=== PATIENT | female | born 1965 | race Caucasian/White ===

== ENCOUNTER 2017-12-13 02:56 | Inpatient (IN) | END 2017-12-20 13:35 | disposition home or self-care (01) | DRG 844 ==

== ENCOUNTER 2018-12-27 10:23 | Emergency (ER) | payer BC, MEDICAID ==
[~2018-12-27] VITALS: Wt 49.2 kg
[~2018-12-27 10:23] MED LIST: CEPH500C PO; HYDR-4012 PO; MUPI15CR9 TOP; NAPR-688 PO
--- NOTE | 2018-12-27 13:20 | ERD ---
ER Documentation Chief Complaint Chief Complaint multiple complains HPI The patient is a 53-year-old female, presenting to the ER with multiple complaints. She complains of midsternal vomiting and diarrhea for the last 2 days, denies hematemesis/hematochezia, complains of vague abdominal discomfort with vomiting. She has dyspnea for the last month intermittently associated with generalized weakness. She was diagnosed with right renal cell carcinoma and had right nephrectomy did not have any chemotherapy. She recently had ch olecystectomy on November 18, 2018. She denies fever, cough, dysuria. 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 Medications Home Meds Active Scripts Ondansetron (Ondansetron Odt) 4 Mg Tab.rapdis, 4 MG PO Q6H PRN for NAUSEA AND/OR VOMITING, #10 TAB Prov:TERESE GOODMAN MD 12/27/18 Nitrofurantoin Monohyd Macrocr* (Macrobid*) 100 Mg Capsr, 100 MG PO BID for 14 Days, CAP Prov:TERESE GOODMAN MD 12/27/18 Mupirocin Calcium* (Mupirocin*) 2% - 15 Gram Cream..g., 1 APPLIC TOP BID for 7 Days Prov:EVELINE MILLER 12/20/17 Cephalexin* (Cephalexin*) 500 Mg Capsule, 500 MG PO Q8 for 7 Days, CAP Prov:EVELINE MILLER 12/20/17 Reported Medications Hydrocodone/Acetaminophen (Buchanan 7.5-325 Tablet) 1 Each Tablet, 1 EACH PO Q6H PRN for NEEDED, TAB 12/12/17 Naproxen* (Naproxen*) 500 Mg Tablet, 500 MG PO BID PRN for NEEDED, TAB 12/12/17 Allergies Allergies: Coded Allergies: No Known Drug Allergies (Verified Allergy, Unknown, 12/13/17) PMhx/Soc History of Surgery: Yes (R kidney removal, brain surgery ) Anesthesia Reaction: No Hx Neurological Disorder: Yes (ruptured aneurysm, cva) Hx Respiratory Disorders: No Hx Cardiac Disorders: No Hx Psychiatric Problems: No Hx Miscellaneous Medical Probl: No Hx Alcohol Use: No Hx Substance Use: No Hx Tobacco Use: No Physical Exam Vitals Vital Signs Date Temp Pulse Resp B/P (MAP) Pulse Ox O2 O2 Flow FiO2 Time Delivery Rate 12/27/18 98.3 99 18 102/50 100 10:32 (67) Physical Exam Const: No acute distress. Head: Atraumatic. Eyes: Normal Conjunctiva. ENT: Normal External Ears, Nose and Mouth. Neck: Full range of motion. No meningismus. Resp: Clear to auscultation bilaterally. Cardio: Regular rate and rhythm. Abd: Soft, non distended, normal bowel sounds, non tender. Skin: No petechiae or rashes. Back: No midline or flank tenderness. Ext: No cyanosis, or edema. Neur: Awake and alert. No focal deficit Psych: Normal Mood and Affect. Result Diagram: 12/27/18 1323 12/27/18 1323 Results 24 hrs Laboratory Tests Test 12/27/18 13:23 12/27/18 14:13 White Blood Count 5.2 10^3/ul Red Blood Count 3.81 10^6/ul Hemoglobin 11.4 g/dl Hematocrit 33.2 % Mean Corpuscular Volume 87.1 fl Mean Corpuscular Hemoglobin 29.9 pg Mean Corpuscular Hemoglobin Concent 34.3 g/dl Red Cell Distribution Width 14.6 % Platelet Count 271 10^3/UL Mean Platelet Volume 10.9 fl Immature Granulocytes % 0.200 % Neutrophils % 39.5 % Lymphocytes % 36.7 % Monocytes % 17.3 % Eosinophils % 5.0 % Basophils % 1.3 % Nucleated Red Blood Cells % 0.0 /100WBC Immature Granulocytes # 0.010 10^3/ul Neutrophils # 2.1 10^3/ul Lymphocytes # 1.9 10^3/ul Monocytes # 0.9 10^3/ul Eosinophils # 0.3 10^3/ul Basophils # 0.1 10^3/ul Nucleated Red Blood Cells # 0.0 10^3/ul Sodium Level 137 mmol/L Potassium Level 3.9 mmol/L Chloride Level 104 mmol/L Carbon Dioxide Level 22 mmol/L Anion Gap 11 Blood Urea Nitrogen 11 mg/dl Creatinine 0.50 mg/dl Est Glomerular Filtrat Rate mL/min > 60 mL/min Glucose Level 83 mg/dl Calcium Level 9.2 mg/dl Total Bilirubin 0.8 mg/dl Direct Bilirubin 0.00 mg/dl Indirect Bilirubin 0.8 mg/dl Aspartate Amino Transf (AST/SGOT) 30 IU/L Alanine Aminotransferase (ALT/SGPT) 16 IU/L Alkaline Phosphatase 50 IU/L Total Protein 5.8 g/dl Albumin 2.9 g/dl Globulin 2.90 g/dl Albumin/Globulin Ratio 1.00 Lipase 373 U/L Bedside Urine pH (LAB) 6.5 Bedside Urine Protein (LAB) 1+ Bedside Urine Glucose (UA) Negative Bedside Urine Ketones (LAB) 4+ Bedside Urine Blood Trace-lysed Bedside Urine Nitrite (LAB) Negative Bedside Urine Leukocyte Esterase (L 1+ Current Medications Medications Dose Sig/Nelson Start Time Status Last (Trade) Ordered Route PRN Stop Time Admin Dose Reason Admin Sodium 1,000 ml @ Q1H ONCE 12/27/18 12/27/18 Chloride 1,000 mls/hr IV 14:30 14:32 12/27/18 15:29 Ondansetron 4 mg ONCE STAT 12/27/18 DC 12/27/18 HCl (Zofran IV 14:23 14:32 Inj) 12/27/18 14:25 Procedures/[place] [id number] Radiology Main Line: [phone] DIAGNOSTIC IMAGING REPORT Patient: TAISHA TRACEY : 1965 Age: 53 Sex: F MR #: [id number] DOS: 12/27/18 1329 Ordering MD: TERESE GOODMAN MD Location: E/R Room/Bed: PROCEDURE: XR Chest. CLINICAL INDICATION: Shortness of breath, abdominal pain TECHNIQUE: A frontal view of the chest was performed. COMPARISON: None FINDINGS: There is a right Port-A-Cath in good positioning. The cardiomediastinal silhouette is within normal limits. The lungs are clear. No signs of pleural fluid or pneumothorax are seen. The osseous structures and soft tissues are unremarkable. IMPRESSION: No evidence for active cardiopulmonary disease. Right Port-A-Cath in good positioning. RPTAT: EE .Sirisha Fu, MD, Date Time Electronically viewed and signed by .Sirisha Harrison MD, MD on 12/27/2018 14:18 .F/ CC: TERESE GOODMAN MD [id number] MEDICAL MAKING DECISION: The patient is a 53-year-old female, presenting with acute dehydration, acute cystitis. She was treated with 1 L normal saline for acute dehydration, Zofran IV for nausea with good response, is above outpatient follow-up The differential diagnoses considered include but are not limited to cholelithiasis, cholecystitis, choledocholithiasis, cholangitis, pancreatitis, hepatitis, gastritis, peptic ulcer disease, gastric ulcer, appendicitis, c ystitis, diverticulitis, partial small bowel obstruction. Departure Diagnosis: Primary Impression: UTI (urinary tract infection) Additional Impressions: Dehydration Anemia Condition: Good Comments She was discharged with Macrobid and Zofran I discussed the findings with the patient. I advised the patient to follow-up with the primary physician in about 2-3 days, sooner if needed and return if any concern. Disclaimer: Inadvertent spelling and grammatical errors are likely due to EHR/dictation software use and do not reflect on the overall quality of patient care. Also, please note that the electronic time recorded on this note does not necessarily reflect the actual time of the patient encounter. TERESE GOODMAN MD Dec 27, 2018 13:20
[2018-12-27] MEDS ORDERED: ONDANSETRON 4 MG INJ IV STA (14:23)
[2018-12-27] MEDS ORDERED: SOD CHLORIDE 0.9% 1,000 ML IV ONE (14:30)
[2018-12-27] MEDS ORDERED: NITR-58 PO (14:43)
[2018-12-27] MEDS ORDERED: ONDA4TAB14 PO (14:44)
[2018-12-27 15:08] VITALS: BP 99/58; PULSE 85; RESP 20
== END 2018-12-27 15:08 | disposition home or self-care (01) ==
LOC: E/R 10:23
DX: N39.0 Urinary tract infection, site not specified (principal); E86.0 Dehydration; D64.9 Anemia, unspecified; Z85.528 Personal history of other malignant neoplasm of kidney; Z86.73 Personal history of transient ischemic attack (TIA), and cerebral infarction without residual deficits
CPT/HCPCS: 36415; 71045; 80053; 81003; 83690; 85025; 96374; J2405; J7030; Z7502